=== PATIENT | male | born 1940 | race Caucasian/White ===

== ENCOUNTER 2016-10-11 05:01 | Day surgery (SDC) | payer MEDICARE, OTHER ==
[~2016-10-11 05:01] MED LIST: ASAB PO; COLESTID1 GM OR; COZAAR100 MG PO; DIOVAN320 MG PO; FLONASE NAS; HALF81 PO; KLOR-CON M1010 MEQ PO; KLOR-CON M2020 MEQ PO; LUCENTIS OP; MAX25 PO; MCZ25 PO; MOBIC7.5 PO; NORCO1 TA1 PO; NORCO1 TAB PO; NORV5 PO; PRILO PO; PRILOSEC40 MG PO; RESTASIS OPH; ZESTRIL20 MG PO
== END 2016-10-11 07:49 | disposition home or self-care (01) ==
LOC: SDC 05:01
PROVIDERS: Orthopaedic Surgery
PROC: B01BZZZ Fluoroscopy of Spinal Cord (ICD-10-PCS; 2016-10-11)
PROC: 3E0R3BZ Introduction of Anesthetic Agent into Spinal Canal, Percutaneous Approach (ICD-10-PCS; principal; 2016-10-11 07:15)
DX: M54.16 Radiculopathy, lumbar region (principal); I10 Essential (primary) hypertension; M19.90 Unspecified osteoarthritis, unspecified site; K21.9 Gastro-esophageal reflux disease without esophagitis; Z79.82 Long term (current) use of aspirin; Z79.899 Other long term (current) drug therapy; Z87.891 Personal history of nicotine dependence; Z86.010 Personal history of colon polyps; Z90.49 Acquired absence of other specified parts of digestive tract; Z98.890 Other specified postprocedural states
CPT/HCPCS: J1040; J2250; J2405; J3010; Q9967

== ENCOUNTER 2016-10-25 05:59 | Day surgery (SDC) | payer MEDICARE, OTHER | END 2016-10-25 08:47 | disposition home or self-care (01) | LOC: SDC 05:59 | PROVIDERS: Orthopaedic Surgery | PROC: 3E0S3BZ Introduction of Anesthetic Agent into Epidural Space, Percutaneous Approach (ICD-10-PCS; 2016-10-25) | PROC: 3E0S33Z Introduction of Anti-inflammatory into Epidural Space, Percutaneous Approach (ICD-10-PCS; principal; 2016-10-25 07:00) | DX: M54.16 Radiculopathy, lumbar region (principal); I49.9 Cardiac arrhythmia, unspecified; I10 Essential (primary) hypertension; K64.9 Unspecified hemorrhoids; K21.9 Gastro-esophageal reflux disease without esophagitis; M19.90 Unspecified osteoarthritis, unspecified site; Z96.652 Presence of left artificial knee joint; Z96.661 Presence of right artificial ankle joint; Z98.890 Other specified postprocedural states; Z90.49 Acquired absence of other specified parts of digestive tract; Z98.41 Cataract extraction status, right eye; Z98.42 Cataract extraction status, left eye; Z96.1 Presence of intraocular lens; Z87.891 Personal history of nicotine dependence; Z79.899 Other long term (current) drug therapy; Z79.82 Long term (current) use of aspirin; Z79.891 Long term (current) use of opiate analgesic; Z79.51 Long term (current) use of inhaled steroids | CPT/HCPCS: J1040; J2250; J3010; Q9967 ==